=== PATIENT | female | born 1995 | race Caucasian/White ===

== ENCOUNTER 2017-03-21 15:43 | Emergency (ER) | payer OTHER ==
[~2017-03-21] VITALS: Ht 154.9 cm; Wt 52.6 kg
[2017-03-21] MEDS ORDERED: KLON0.5T PO (15:57)
[2017-03-21] MEDS ORDERED: TRIL150T PO (15:57)
[2017-03-21] MEDS ORDERED: ADDE20CA PO (15:57)
[2017-03-21] MEDS ORDERED: HYDR10T PO (15:57)
[2017-03-21 16:50] VITALS: BP 126/68
== END 2017-03-21 16:53 | disposition home or self-care (01) ==
LOC: M ED 16:43
DX: F44.5 Conversion disorder with seizures or convulsions (principal); F99 Mental disorder, not otherwise specified; F12.10 Cannabis abuse, uncomplicated; F33.9 Major depressive disorder, recurrent, unspecified; F41.9 Anxiety disorder, unspecified; Z79.899 Other long term (current) drug therapy

== ENCOUNTER 2022-07-25 12:34 | Emergency (ER) | payer OTHER ==
[~2022-07-25] VITALS: Ht 154.9 cm; Wt 74.1 kg
[~2022-07-25 12:34] MED LIST: ADDE20CA3 PO; HYDR-643 PO; KLON0.5T PO; TRIL150T PO
[2022-07-25] MEDS ORDERED: FLUO40CA (12:44)
[2022-07-25 14:38] LABS: BASO % 0.3 % (0.0-1.0); EOS # 0.1 10^3/uL (0.0-0.5); EOS % 1.1 % (0.0-3.0); HEMATOCRIT 45.3 % (36.0-47.0); HEMOGLOBIN 15.1 g/dl (12.0-15.5); LYMPH # 2.1 10^3/uL (1.5-5.0); LYMPH % 31.7 % (24.0-44.0); MEAN CORPUSCULAR HEMOGLOBIN 30.8 pg (27.0-33.0); MEAN CORPUSCULAR HGB CONC 33.3 g/dl (32.0-36.5); MEAN CORPUSCULAR VOLUME 92.3 fl (80.0-96.0); MONO # 0.4 10^3/uL (0.0-0.8); MONO % 5.9 % (2.0-8.0); NEUTROPHILS % 60.7 % (36.0-66.0); PLATELET COUNT, AUTOMATED 295 10^3/uL (150-450); RED BLOOD COUNT 4.91 10^6/uL (4.00-5.40); WHITE BLOOD COUNT 6.7 10^3/uL (4.0-10.0)
[2022-07-25 15:03] LABS: HCG, SERUM QUALITATIVE NEGATIVE (NEGATIVE)
[2022-07-25 15:19] LABS: ALBUMIN 4.8 GM/DL (3.2-5.2); ALT/SGPT 24 U/L (12-78); BILIRUBIN,DIRECT 0.3 MG/DL (0.0-0.2); BILIRUBIN,TOTAL 0.8 MG/DL (0.2-1.0); BLOOD UREA NITROGEN 6 MG/DL (7-18); CALCIUM LEVEL 9.7 MG/DL (8.5-10.1); CARBON DIOXIDE LEVEL 25 MEQ/L (21-32); CHLORIDE LEVEL 101 MEQ/L (98-107); CREATININE FOR GFR 1.12 MG/DL (0.55-1.30); GLOMERULAR FILTRATION RATE > 60.0 (>60); GLUCOSE, FASTING 79 MG/DL (70-100); LIPASE 94 U/L (73-393); POTASSIUM SERUM 3.6 MEQ/L (3.5-5.1); SODIUM LEVEL 136 MEQ/L (136-145); TOTAL PROTEIN 8.5 GM/DL (6.4-8.2)
[2022-07-25 17:30] VITALS: BP 110/78
[2022-07-25] MEDS ORDERED: PROT1TAB2 PO (17:30)
== END 2022-07-25 17:39 | disposition home or self-care (01) ==
LOC: M ED 12:34
DX: K92.1 Melena (principal); R10.13 Epigastric pain; G40.89 Other seizures; F41.9 Anxiety disorder, unspecified; F32.A Depression, unspecified; F90.9 Attention-deficit hyperactivity disorder, unspecified type; Z79.1 Long term (current) use of non-steroidal anti-inflammatories (NSAID); Z79.899 Other long term (current) drug therapy

== ENCOUNTER 2022-09-15 18:07 | Inpatient (IN) | payer OTHER ==
[~2022-09-15] VITALS: Ht 157.5 cm; Wt 68.0 kg
[~2022-09-15 18:07] MED LIST changes: +FLUO40CA PO; +PROT1TAB2 PO
[2022-09-15] MEDS ORDERED: MAALOX 30 ML SUSP *UDC PO PRN (23:25)
[2022-09-15] MEDS ORDERED: ACETAMINOPHEN TAB 650MG DOSE (2X325MG) PO PRN (23:25)
[2022-09-15] MEDS ORDERED: traZODone 50 MG TAB PO PRN (23:25)
[2022-09-15] MEDS ORDERED: MOM 30ML SUSPENSION UDC PO PRN (23:25)
[2022-09-16] MEDS ORDERED: HOME MED LIST COMPLETE! XX SCH (00:20)
[2022-09-16] MEDS: AMPHETAMINE/DEXTROAMPHETAMINE 5 MG *ER* CAPSULE (ADDERALL XR) PO SCH (09:29)
[2022-09-16] MEDS: FLUoxetine 20MG CAP PO SCH (09:30)
[2022-09-16] MEDS: NICOTINE 21MG/24HR 1 EA TRANSDERMAL TD SCH (09:38)
[2022-09-16 18:00] VITALS: BP 140/74
[2022-09-16] MEDS ORDERED: DIVALPROEX 250MG *ER* TAB PO SCH (21:00)
[2022-09-17 02:30] VITALS: BP 165/98
[2022-09-17 02:35] VITALS: BP 165/97
[2022-09-17] MEDS ORDERED: levETIRAcetam 250MG TABLET (KEPPRA) PO STA (02:47)
[2022-09-17] MEDS ORDERED: levETIRAcetam 250MG TABLET (KEPPRA) PO ONE (03:00)
[2022-09-17 06:08] VITALS: BP 110/73
[2022-09-17 08:52] LABS: HEMATOCRIT 43.1 % (36.0-47.0); MEAN CORPUSCULAR HEMOGLOBIN 30.7 pg (27.0-33.0); MEAN CORPUSCULAR HGB CONC 32.5 g/dl (32.0-36.5); MEAN CORPUSCULAR VOLUME 94.5 fl (80.0-96.0); PLATELET COUNT, AUTOMATED 235 10^3/uL (150-450); RED BLOOD COUNT 4.56 10^6/uL (4.00-5.40); WHITE BLOOD COUNT 7.3 10^3/uL (4.0-10.0)
[2022-09-17] MEDS: levETIRAcetam 250MG TABLET (KEPPRA) PO SCH ×2 (09:01→20:53)
[2022-09-17] MEDS: NICOTINE 21MG/24HR 1 EA TRANSDERMAL TD SCH (09:01)
[2022-09-17] MEDS: AMPHETAMINE/DEXTROAMPHETAMINE 5 MG *ER* CAPSULE (ADDERALL XR) PO SCH (09:01)
[2022-09-17] MEDS: FLUoxetine 20MG CAP PO SCH (09:02)
[2022-09-17 09:20] LABS: BLOOD UREA NITROGEN 9 MG/DL (7-18); CALCIUM LEVEL 9.1 MG/DL (8.5-10.1); CARBON DIOXIDE LEVEL 28 MEQ/L (21-32); CHLORIDE LEVEL 107 MEQ/L (98-107); CREATININE FOR GFR 0.88 MG/DL (0.55-1.30); GLOMERULAR FILTRATION RATE > 60.0 (>60); GLUCOSE, FASTING 92 MG/DL (70-100); MAGNESIUM LEVEL 2.2 MG/DL (1.8-2.4); POTASSIUM SERUM 4.3 MEQ/L (3.5-5.1); SODIUM LEVEL 137 MEQ/L (136-145)
[2022-09-17 18:20] VITALS: BP 145/78
[2022-09-18 06:11] VITALS: BP 115/66
[2022-09-18] MEDS: levETIRAcetam 250MG TABLET (KEPPRA) PO SCH ×2 (09:06→20:49)
[2022-09-18] MEDS: FLUoxetine 20MG CAP PO SCH (09:06)
[2022-09-18] MEDS: AMPHETAMINE/DEXTROAMPHETAMINE 5 MG *ER* CAPSULE (ADDERALL XR) PO SCH (09:06)
[2022-09-18] MEDS: NICOTINE 21MG/24HR 1 EA TRANSDERMAL TD SCH (09:09)
[2022-09-18] MEDS ORDERED: MIRTAZAPINE 7.5MG PER 1/2 TABLET PO PRN (10:10)
[2022-09-18] MEDS ORDERED: traZODone 25MG PER 1/2 TABLET PO PRN (13:45)
[2022-09-18] MEDS ORDERED: DIVALPROEX 500MG *ER* TAB PO ONE (13:45)
[2022-09-18] MEDS ORDERED: PILL CUTTER 1 EACH XX PRN (14:15)
[2022-09-18 16:18] VITALS: BP 140/90
[2022-09-19 06:34] VITALS: BP 103/60
[2022-09-19] MEDS: FLUoxetine 20MG CAP PO SCH (08:57)
[2022-09-19] MEDS: AMPHETAMINE/DEXTROAMPHETAMINE 5 MG *ER* CAPSULE (ADDERALL XR) PO SCH (08:57)
[2022-09-19] MEDS: NICOTINE 21MG/24HR 1 EA TRANSDERMAL TD SCH (08:58)
[2022-09-19 16:11] VITALS: BP 118/69
[2022-09-19] MEDS: DIVALPROEX 250MG *ER* TAB PO SCH (22:01)
[2022-09-19] MEDS: traZODone 50 MG TAB PO PRN (22:02)
[2022-09-20 06:22] VITALS: BP 90/60
[2022-09-20] MEDS: FLUoxetine 20MG CAP PO SCH (09:00)
[2022-09-20] MEDS: NICOTINE 21MG/24HR 1 EA TRANSDERMAL TD SCH (09:01)
[2022-09-20] MEDS: AMPHETAMINE/DEXTROAMPHETAMINE 5 MG *ER* CAPSULE (ADDERALL XR) PO SCH (11:42)
[2022-09-20 16:30] VITALS: BP 106/70
[2022-09-20] MEDS: DIVALPROEX 250MG *ER* TAB PO SCH (21:00)
[2022-09-21] MEDS: traZODone 50 MG TAB PO PRN ×2 (01:07→23:07)
[2022-09-21 06:00] VITALS: BP 115/62
[2022-09-21] MEDS: NICOTINE 21MG/24HR 1 EA TRANSDERMAL TD SCH (10:22)
[2022-09-21] MEDS: FLUoxetine 20MG CAP PO SCH (10:23)
[2022-09-21] MEDS: AMPHETAMINE/DEXTROAMPHETAMINE 5 MG *ER* CAPSULE (ADDERALL XR) PO SCH (10:23)
[2022-09-21 18:08] VITALS: BP 122/71
[2022-09-21] MEDS: DIVALPROEX 250MG *ER* TAB PO SCH (21:47)
[2022-09-22] MEDS ORDERED: LORazepam 2 MG/ML VIAL IM STA (02:32)
[2022-09-22] MEDS ORDERED: LORazepam 2 MG/ML VIAL As Ordered ONE (02:35)
[2022-09-22] MEDS: NICOTINE 21MG/24HR 1 EA TRANSDERMAL TD SCH (09:00)
[2022-09-22] MEDS ORDERED: TRAZ-252 PO (09:46)
[2022-09-22] MEDS ORDERED: DEPA250T2 PO (09:46)
[2022-09-22] MEDS: AMPHETAMINE/DEXTROAMPHETAMINE 5 MG *ER* CAPSULE (ADDERALL XR) PO SCH (09:46)
[2022-09-22] MEDS: FLUoxetine 20MG CAP PO SCH (09:47)
== END 2022-09-22 13:00 | disposition home or self-care (01) | DRG 753 ==
LOC: EDBD 18:07 → M ED 18:29 → M ED INP 23:22 → M PSY 09-16 02:55
PROVIDERS: ADMIT Psychiatry & Neurology Psychiatry; ATTEND Psychiatry & Neurology Psychiatry
DX: F31.9 Bipolar disorder, unspecified (principal); G40.209 Localization-related (focal) (partial) symptomatic epilepsy and epileptic syndromes with complex partial seizures, not intractable, without status epilepticus; R45.851 Suicidal ideations; F32.A Depression, unspecified; F60.3 Borderline personality disorder; F43.10 Post-traumatic stress disorder, unspecified; Z62.810 Personal history of physical and sexual abuse in childhood; Z63.0 Problems in relationship with spouse or partner; Z81.8 Family history of other mental and behavioral disorders; Z79.899 Other long term (current) drug therapy; F42.9 Obsessive-compulsive disorder, unspecified; Z90.49 Acquired absence of other specified parts of digestive tract; F17.210 Nicotine dependence, cigarettes, uncomplicated; F41.9 Anxiety disorder, unspecified

== ENCOUNTER 2022-12-20 13:18 | Emergency (ER) | payer OTHER ==
[~2022-12-20] VITALS: Ht 154.9 cm; Wt 70.3 kg
[~2022-12-20 13:18] MED LIST changes: +DEPA250T2 PO; +TRAZ-252 PO
[2022-12-20 14:44] LABS: HEMOGLOBIN 12.8 g/dl (12.0-15.5); MEAN CORPUSCULAR HEMOGLOBIN 31.8 pg (27.0-33.0); MEAN CORPUSCULAR HGB CONC 33.7 g/dl (32.0-36.5); MEAN CORPUSCULAR VOLUME 94.3 fl (80.0-96.0); PLATELET COUNT, AUTOMATED 241 10^3/uL (150-450); RED BLOOD COUNT 4.03 10^6/uL (4.00-5.40); WHITE BLOOD COUNT 10.3 10^3/uL (4.0-10.0)
[2022-12-20 15:10] LABS: BLOOD UREA NITROGEN < 5 MG/DL (9-23); CALCIUM LEVEL 9.1 MG/DL (8.5-10.1); CARBON DIOXIDE LEVEL 25 MMOL/L (20-31); CHLORIDE LEVEL 104 MMOL/L (98-107); CREATININE FOR GFR 0.69 MG/DL (0.55-1.30); GLOMERULAR FILTRATION RATE > 60.0 (>60); GLUCOSE, FASTING 88 MG/DL (60-100); POTASSIUM SERUM 3.6 MMOL/L (3.5-5.1); SODIUM LEVEL 137 MMOL/L (136-145)
[2022-12-20 15:41] LABS: RSV AMPLIFICATION NEGATIVE (NEGATIVE)
[2022-12-20 16:24] LABS: HCG, SERUM QUANTITATIVE 21023.7 MIU/ML (<4.2)
[2022-12-20 17:42] VITALS: BP 138/63
== END 2022-12-20 17:43 | disposition home or self-care (01) ==
LOC: M ED 13:18
DX: O02.1 Missed abortion (principal); G40.89 Other seizures; F31.9 Bipolar disorder, unspecified; F41.9 Anxiety disorder, unspecified; F43.10 Post-traumatic stress disorder, unspecified; F17.200 Nicotine dependence, unspecified, uncomplicated; Z79.83 Long term (current) use of bisphosphonates; Z79.899 Other long term (current) drug therapy

== ENCOUNTER 2024-03-18 18:40 | Emergency (ER) | payer OTHER ==
[~2024-03-18] VITALS: Ht 157.5 cm; Wt 54.5 kg
[~2024-03-18 18:40] MED LIST changes: -KLON0.5T PO; +KLON0.5T8 PO
[2024-03-18 19:22] LABS: BASO # 0.1 10^3/uL (0.0-0.2); BASO % 0.4 % (0.0-1.0); EOS # 0.3 10^3/uL (0.0-0.5); EOS % 1.5 % (0.0-3.0); HEMATOCRIT 47.7 % (36.0-47.0); HEMOGLOBIN 15.9 g/dl (12.0-15.5); LYMPH # 4.6 10^3/uL (1.5-5.0); LYMPH % 27.7 % (24.0-44.0); MEAN CORPUSCULAR HEMOGLOBIN 32.4 pg (27.0-33.0); MEAN CORPUSCULAR HGB CONC 33.3 g/dl (32.0-36.5); MEAN CORPUSCULAR VOLUME 97.1 fl (80.0-96.0); MONO % 5.8 % (2.0-8.0); NEUTROPHILS # 10.7 10^3/uL (1.5-8.5); NEUTROPHILS % 63.9 % (36.0-66.0); PLATELET COUNT, AUTOMATED 343 10^3/uL (150-450); RED BLOOD COUNT 4.91 10^6/uL (4.00-5.40); WHITE BLOOD COUNT 16.7 10^3/uL (4.0-10.0)
[2024-03-18] MEDS: NS 1,000 ML IV ONE ×2 (19:29→21:43)
[2024-03-18] MEDS: ONDANSETRON 4MG 2ML VIAL IV ONE (19:29)
[2024-03-18 19:44] LABS: LIPASE 95 U/L (12-53); VALPROIC ACID (DEPAKOTE) < 3.0 UG/ML (50.0-100.0)
[2024-03-18 19:46] LABS: ALBUMIN 5.3 G/DL (3.2-5.2); ALKALINE PHOSPHATASE 80 U/L (46-116); ALT/SGPT 37 U/L (7.0-40); AST/SGOT 29 U/L (<34); BILIRUBIN,DIRECT 0.2 MG/DL (<0.4); BILIRUBIN,TOTAL 0.6 MG/DL (0.3-1.2); BLOOD UREA NITROGEN 13 MG/DL (9-23); CALCIUM LEVEL 11.4 MG/DL (8.5-10.1); CARBON DIOXIDE LEVEL 21 MMOL/L (20-31); CHLORIDE LEVEL 99 MMOL/L (98-107); CREATININE FOR GFR 0.88 MG/DL (0.55-1.30); GLOMERULAR FILTRATION RATE > 60.0 (>60); GLUCOSE, FASTING 192 MG/DL (60-100); POTASSIUM SERUM 3.3 MMOL/L (3.5-5.1); SODIUM LEVEL 138 MMOL/L (136-145); TOTAL PROTEIN 8.6 G/DL (5.7-8.2)
[2024-03-18] MEDS ORDERED: ISOVUE-370 76% 100ML VIAL As Ordered ONE (19:49)
[2024-03-18 20:10] VITALS: TEMP 97.2
[2024-03-18 20:33] LABS: HCG, SERUM QUALITATIVE NEGATIVE (NEGATIVE)
[2024-03-18] MEDS: HALOPERIDOL 5MG/ML 1ML VIAL IV ONE (21:26)
[2024-03-18] MEDS ORDERED: ONDA4TAB6 PO (21:30)
[2024-03-18] MEDS: KCL 10MEQ/100ML SWI (KRUN) 10 MEQ in IV 1 EA IV ONE (21:43)
[2024-03-18 22:30] VITALS: BP 124/71; O2SAT 100
[2024-03-18] MEDS ORDERED: LOPE2TAB12 PO (22:33)
[2024-03-18] MEDS: ONDANSETRON 4MG ORAL DISINTEGRATING TAB PO ONE (22:42)
== END 2024-03-18 22:44 | disposition home or self-care (01) ==
LOC: M ED 18:40
DX: R56.9 Unspecified convulsions (principal); A08.19 Acute gastroenteropathy due to other small round viruses; Z79.899 Other long term (current) drug therapy
CPT/HCPCS: 70450; 74177; 80047; 80048; 80076; 80164; 83605; 83690; 84703; 85025; 87507; 94760; 96361; 96374; 96375; 96376; 99284; J1630; J2405; Q9967

== ENCOUNTER 2024-06-10 11:17 | Emergency (ER) | payer OTHER ==
[~2024-06-10] VITALS: Ht 157.5 cm; Wt 59.4 kg
[~2024-06-10 11:17] MED LIST changes: +LOPE2TAB12 PO; +ONDA-282 PO
[2024-06-10] MEDS ORDERED: FLUO-365 (11:35)
[2024-06-10] MEDS ORDERED: BUSP10TA79 (11:35)
[2024-06-10] MEDS ORDERED: TRIL1TAB PO (11:35)
[2024-06-10 13:13] LABS: BASO % 0.4 % (0.0-1.0); EOS % 0.6 % (0.0-3.0); HEMATOCRIT 41.5 % (36.0-47.0); HEMOGLOBIN 14.5 g/dl (12.0-15.5); LYMPH # 1.9 10^3/uL (1.5-5.0); LYMPH % 27.2 % (24.0-44.0); MEAN CORPUSCULAR HEMOGLOBIN 33.4 pg (27.0-33.0); MEAN CORPUSCULAR HGB CONC 34.9 g/dl (32.0-36.5); MEAN CORPUSCULAR VOLUME 95.6 fl (80.0-96.0); MONO # 0.5 10^3/uL (0.0-0.8); MONO % 6.9 % (2.0-8.0); NEUTROPHILS # 4.4 10^3/uL (1.5-8.5); NEUTROPHILS % 64.6 % (36.0-66.0); PLATELET COUNT, AUTOMATED 224 10^3/uL (150-450); RED BLOOD COUNT 4.34 10^6/uL (4.00-5.40); WHITE BLOOD COUNT 6.8 10^3/uL (4.0-10.0)
[2024-06-10 13:44] LABS: VALPROIC ACID (DEPAKOTE) 78.4 UG/ML (50.0-100.0)
[2024-06-10 13:47] LABS: ALBUMIN 4.1 G/DL (3.2-5.2); ALKALINE PHOSPHATASE 48 U/L (46-116); ALT/SGPT 45 U/L (7.0-40); AST/SGOT 28 U/L (<34); BILIRUBIN,DIRECT 0.2 MG/DL (<0.4); BILIRUBIN,TOTAL 0.5 MG/DL (0.3-1.2); BLOOD UREA NITROGEN 12 MG/DL (9-23); CALCIUM LEVEL 9.5 MG/DL (8.5-10.1); CARBON DIOXIDE LEVEL 25 MMOL/L (20-31); CHLORIDE LEVEL 105 MMOL/L (98-107); CREATININE FOR GFR 0.94 MG/DL (0.55-1.30); GLOMERULAR FILTRATION RATE > 60.0 (>60); GLUCOSE, FASTING 75 MG/DL (60-100); POTASSIUM SERUM 3.9 MMOL/L (3.5-5.1); SODIUM LEVEL 141 MMOL/L (136-145); TOTAL PROTEIN 6.8 G/DL (5.7-8.2)
[2024-06-10 14:00] LABS: HCG, SERUM QUALITATIVE NEGATIVE (NEGATIVE)
[2024-06-10 15:22] LABS: AMPHETAMINES LEVEL URINE NEGATIVE (NEGATIVE); BARBITURATES URINE NEGATIVE (NEGATIVE)
[2024-06-10 15:23] LABS: BENZODIAZEPINES URINE NEGATIVE (NEGATIVE); COCAINE METABOLITE URINE NEGATIVE (NEGATIVE); METHADONE URINE NEGATIVE (NEGATIVE); OPIATES URINE NEGATIVE (NEGATIVE); PHENCYCLIDINE URINE NEGATIVE (NEGATIVE)
[2024-06-10 15:30] LABS: CANNABINOIDS URINE POSITIVE (NEGATIVE)
[2024-06-10 16:27] LABS: CPK CREATINE PHOSPHOKINASE 265 U/L (34-145)
[2024-06-10 17:00] VITALS: BP 111/70; TEMP 97.9; O2SAT 98
== END 2024-06-10 17:12 | disposition home or self-care (01) ==
LOC: EDBD 11:17 → M ED 11:17
DX: F44.5 Conversion disorder with seizures or convulsions (principal); F41.9 Anxiety disorder, unspecified; F31.9 Bipolar disorder, unspecified; F12.10 Cannabis abuse, uncomplicated; Z79.899 Other long term (current) drug therapy

== ENCOUNTER 2024-10-30 21:15 | Inpatient (IN) | payer OTHER ==
[~2024-10-30] VITALS: Ht 157.5 cm; Wt 65.0 kg
[~2024-10-30 21:15] MED LIST changes: +BUSP10TA79; +FLUO-365; +TRIL1TAB PO
[2024-10-30] MEDS ORDERED: ACETAMINOPHEN 325 MG TAB PO PRN (23:30)
[2024-10-30] MEDS ORDERED: diphenhydrAMINE 25MG CAP PO PRN (23:30)
[2024-10-30] MEDS ORDERED: MOM 30ML SUSPENSION UDC PO PRN (23:30)
[2024-10-30] MEDS ORDERED: MAALOX 30 ML SUSP *UDC PO PRN (23:30)
[2024-10-30] MEDS ORDERED: IBUPROFEN 400MG TAB PO PRN (23:30)
[2024-10-30] MEDS ORDERED: DIVA250T67 PO (23:31)
[2024-10-30] MEDS ORDERED: MED REC IN PROGRESS XX SCH (23:35)
[2024-10-31 01:08] VITALS: BP 112/70; TEMP 98.1; O2SAT 100
[2024-10-31 06:26] VITALS: BP 100/56; TEMP 96.8; O2SAT 100
[2024-10-31] MEDS ORDERED: OXcarbazepine 300 MG TAB PO SCH ×2 (09:00)
[2024-10-31] MEDS ORDERED: NICOTINE 14 MG/24 HR TRANSDERMAL TD SCH (09:00)
[2024-10-31] MEDS ORDERED: ADDE20TA PO (09:13)
[2024-10-31] MEDS ORDERED: OXCA300T14 PO (09:13)
[2024-10-31] MEDS ORDERED: HOME MED LIST COMPLETE! XX SCH (09:15)
[2024-10-31] MEDS: FLUoxetine 20MG CAP PO SCH (09:35)
[2024-10-31] MEDS: OXcarbazepine 150 MG TAB PO SCH (10:45)
[2024-10-31] MEDS: OXcarbazepine 300 MG TAB PO SCH ×2 (10:45→20:39)
[2024-10-31] MEDS ORDERED: NICOTINE 14 MG/24 HR TRANSDERMAL TD PRN (13:25)
[2024-10-31] MEDS: NICOTINE 21MG/24HR 1 EA TRANSDERMAL TD SCH (14:08)
[2024-10-31 15:21] VITALS: BP 19/59; TEMP 98; O2SAT 100
[2024-10-31] MEDS: DIVALPROEX 250MG TAB PO SCH (20:39)
[2024-10-31] MEDS: traZODone 50 MG TAB PO PRN (22:31)
[2024-11-01 06:23] VITALS: BP 101/56; TEMP 97.8; O2SAT 98
[2024-11-01 15:00] VITALS: BP 128/78; TEMP 98.2; O2SAT 97
[2024-11-02 06:13] VITALS: BP 121/58; TEMP 98.3; O2SAT 98
[2024-11-02 14:47] VITALS: BP 126/74; TEMP 98.6; O2SAT 99
[2024-11-03 06:20] VITALS: BP 119/60; TEMP 98.1; O2SAT 98
== END 2024-11-03 14:09 | disposition home or self-care (01) | DRG 754 ==
LOC: EDBD 21:15 → M ED 21:15 → M ED INP 23:29 → M PSY 10-31 00:41
PROVIDERS: ADMIT Psychiatry & Neurology Neurology; ATTEND Psychiatry & Neurology Neurology
DX: F32.9 Major depressive disorder, single episode, unspecified (principal); F41.9 Anxiety disorder, unspecified; F60.3 Borderline personality disorder; G40.009 Localization-related (focal) (partial) idiopathic epilepsy and epileptic syndromes with seizures of localized onset, not intractable, without status epilepticus; F90.9 Attention-deficit hyperactivity disorder, unspecified type; F42.9 Obsessive-compulsive disorder, unspecified; Z79.899 Other long term (current) drug therapy

== ENCOUNTER 2025-10-27 00:48 | Emergency (ER) | payer OTHER ==
[~2025-10-27 00:48] MED LIST changes: +ADDE20TA PO; +DEPA250T PO; -DEPA250T2 PO; +DIVA250T67 PO; +OXCA300T14 PO
[2025-10-27 01:04] VITALS: BP 112/70; TEMP 97.5; O2SAT 98
[2025-10-27 01:29] LABS: PLATELET COUNT, AUTOMATED 223 10^3/uL (150-450)
[2025-10-27 01:58] LABS: AMPHETAMINES LEVEL URINE NEGATIVE (NEGATIVE); BARBITURATES URINE NEGATIVE (NEGATIVE); BENZODIAZEPINES URINE NEGATIVE (NEGATIVE); COCAINE METABOLITE URINE NEGATIVE (NEGATIVE); METHADONE URINE NEGATIVE (NEGATIVE); OPIATES URINE NEGATIVE (NEGATIVE); PHENCYCLIDINE URINE NEGATIVE (NEGATIVE)
[2025-10-27 02:00] LABS: CANNABINOIDS URINE POSITIVE (NEGATIVE); ETHYL ALCOHOL (ETHANOL) 0.149 % (0.000-0.010)
[2025-10-27 02:02] LABS: ALT/SGPT 32 U/L (7.0-40); AST/SGOT 22 U/L (<34); CALCIUM LEVEL 9.2 MG/DL (8.5-10.1); CARBON DIOXIDE LEVEL 26 MMOL/L (20-31); CHLORIDE LEVEL 106 MMOL/L (98-107); CREATININE FOR GFR 0.78 MG/DL (0.55-1.30); GLOMERULAR FILTRATION RATE > 90.0 (>60); POTASSIUM SERUM 4.1 MMOL/L (3.5-5.1); SALICYLATE LEVEL < 3.0 MG/DL (<30); SODIUM LEVEL 142 MMOL/L (136-145)
== END 2025-10-27 03:55 | disposition home or self-care (01) ==
LOC: M ED 00:48 → EDBD 00:48 → M ED 03:55
DX: F43.0 Acute stress reaction (principal); F31.9 Bipolar disorder, unspecified; G40.909 Epilepsy, unspecified, not intractable, without status epilepticus; F41.9 Anxiety disorder, unspecified; F10.10 Alcohol abuse, uncomplicated; Z79.899 Other long term (current) drug therapy